=== PATIENT | female | born 1975 | race Two or more races ===

== ENCOUNTER 2018-04-06 14:55 | Emergency (ER) | payer SELFPAY ==
[2018-04-06 16:14] LABS: BASO # 0.1 x10^3/uL (0.0-0.2); BASO % 1 % (0-3); EOS # 0.1 x10^3/uL (0.0-0.7); EOS % 1 % (0-3); HEMATOCRIT 40.4 % (36.0-47.0); HEMOGLOBIN 13.4 g/dL (12.0-15.5); LYMPH # 1.1 x10^3/uL (1.0-4.8); LYMPH % 7 % (24-48); MEAN CORPUSCULAR HEMOGLOBIN 26 pg (25-35); MEAN CORPUSCULAR HGB CONC 33 g/dL (31-37); MEAN CORPUSCULAR VOLUME 79 fL (79-100); MONO # 0.8 x10^3/uL (0.0-1.1); MONO % 5 % (0-9); NEUT # 14.1 x10^3uL (1.8-7.7); NEUT % 87 % (31-73); PLATELET COUNT 231 x10^3/uL (140-400); RED BLOOD COUNT 5.12 x10^6/uL (3.50-5.40); RED CELL DISTRIBUTION WIDTH 14.6 % (11.5-14.5); WHITE BLOOD COUNT 16.2 x10^3/uL (4.0-11.0)
[2018-04-06 16:16] LABS: ADD MAN DIFF? YES
[2018-04-06] MEDS: ONDANSETRON PF 4 MG/2 ML VIAL. IV (16:26)
[2018-04-06] MEDS: fentaNYL PF VIAL 100 MCG/2 ML VIAL IV (16:26)
[2018-04-06] MEDS: IV NORMAL SALINE 1000ML BAG 1,000 ML IV (16:26)
[2018-04-06 16:29] LABS: ANION GAP 12 (6-14); BLOOD UREA NITROGEN 11 mg/dL (7-20); BUN/CREATININE RATIO 16 (6-20); CALCIUM 8.9 mg/dL (8.5-10.1); CARBON DIOXIDE 21 mmol/L (21-32); CHLORIDE 98 mmol/L (98-107); CREATININE 0.7 mg/dL (0.6-1.0); GFR 91.8; GLUCOSE 335 mg/dL (70-99); POTASSIUM 3.7 mmol/L (3.5-5.1); SODIUM 131 mmol/L (136-145)
[2018-04-06 16:31] LABS: NEG OBC SER NEG; POS OBC SER POS; PREG TEST PT QUAL NEGATIVE (NEG)
[2018-04-06 16:35] LABS: ALBUMIN 3.4 g/dL (3.4-5.0); ALBUMIN/GLOBULIN RATIO 0.8 (1.0-1.7); ALK PHOS 194 U/L (46-116); ALT (SGPT) 48 U/L (14-59); AST (SGOT) 22 U/L (15-37); LIPASE 146 U/L (73-393); TOTAL BILIRUBIN 0.4 mg/dL (0.2-1.0); TOTAL PROTEIN 7.9 g/dL (6.4-8.2)
[2018-04-06 16:37] LABS: TROPONINI < 0.017 ng/mL (0.000-0.055)
[2018-04-06 16:45] LABS: BILIRUBIN,URINE NEGATIVE (NEG); CLARITY,URINE CLEAR; COLOR,URINE YELLOW; GLUCOSE,URINE >=1000 mg/dL (NEG); NITRITE,URINE NEGATIVE (NEG); PH,URINE 5.5; PROTEIN,URINE NEGATIVE (NEG-TRACE); UROBILINOGEN,URINE 0.2 mg/dL (0.2 mg/dL)
[2018-04-06 16:55] LABS: BACTERIA,URINE FEW /HPF (0-FEW); RBC,URINE 0 /HPF (0-2); SQUAMOUS EPITHELIAL CELL,UR OCC /LPF; WBC,URINE OCC /HPF (0-4)
[2018-04-06] MEDS ORDERED: CONTRAST GIVEN MC (17:15)
[2018-04-06] MEDS: IOHEXOL 300 MG/ML 100ML VIAL. IV (17:18)
[2018-04-06 17:35] LABS: % BASOS 4 % (0-3); % EOS 3 % (0-5); % LYMPHS 6 % (24-48); % MONOS 1 % (0-10); % SEGS 86 % (35-66); OVALOCYTES OCC; PLT ESTIMATE ADEQUATE (ADEQUATE); POLYCHROMASIA SLIGHT; SCHISTOCYTES OCC
[2018-04-06 18:38] LABS: POC GLUCOSE 249 mg/dL (70-99)
== END 2018-04-06 19:01 | disposition home or self-care (01) ==
LOC: ER 14:55
DX: K52.9 Noninfective gastroenteritis and colitis, unspecified (principal); E11.65 Type 2 diabetes mellitus with hyperglycemia; Z90.49 Acquired absence of other specified parts of digestive tract
CPT/HCPCS: 36415; 74177; 80053; 81001; 82962; 83690; 84484; 84703; 85007; 85025; 93005; 96361; 96374; 96375; 99285-25; J2405; J3010; J7030; Q9967

== ENCOUNTER 2018-12-28 01:10 | Emergency (ER) | payer SELFPAY ==
[~2018-12-28] VITALS: Ht 157.5 cm; Wt 59.0 kg
[~2018-12-28 01:10] MED LIST: CIPR500T94 PO; HYDR-3164 PO; METF500T16 PO; NITR100C62 PO
[2018-12-28 01:53] LABS: BILIRUBIN,URINE NEGATIVE (NEG); CLARITY,URINE CLEAR; COLOR,URINE YELLOW; NITRITE,URINE NEGATIVE (NEG); PROTEIN,URINE NEGATIVE (NEG-TRACE); UROBILINOGEN,URINE 0.2 mg/dL (0.2 mg/dL)
--- NOTE | 2018-12-28 01:58 | PHYS DOC ---
Past Medical History Past Medical History: No Pertinent History, STD Past Surgical History: Appendectomy, Cholecystectomy Alcohol Use: None Drug Use: None Adult General Chief Complaint Chief Complaint: ABDOMINAL PAIN HPI HPI Patient is a 43 year old female who presents with abdominal pain that started suddenly around 21:30 this evening. The pain is in her RUQ and radiates around her torso and down towards her groin. Associated symptoms at initial onset include chest pain and shortness of breath which lasted for less then an hour and have completely resolve without recurrence. She denies fever, chills, nausea , vomiting, melena, hematochezia, dysuria, hematuria. She ate normally yesterday and had normal bowel movement. Her LMP was in October but she reports intermittent vaginal bleeding since. The frequency varies and can occur every few days or subside for a week or two at a time. She has not bled since 12/25. Bleeding associated with what she says feels like menstrual cramps. She underwent cholecystectomy in 2015 with resolution of the symptoms. Review of Systems Review of Systems Constitutional: Denies fever or chills [] Eyes: Denies change in visual acuity, redness, or eye pain [] HENT: Denies nasal congestion or sore throat [] Respiratory: Denies cough or shortness of breath [] Cardiovascular: No additional information not addressed in HPI [] GI: Denies abdominal pain, nausea, vomiting, bloody stools or diarrhea [] : Denies dysuria or hematuria [] Musculoskeletal: Denies back pain or joint pain [] Integument: Denies rash or skin lesions [] Neurologic: Denies headache, focal weakness or sensory changes [] Endocrine: Denies polyuria or polydipsia [] All other systems were reviewed and found to be within normal limits, except as documented in this note. Current Medications Current Medications Current Medications Medications (Trade) Dose Ordered Sig/Yeni Start Time Stop Time Status Last Admin Dose Admin Azithromycin (Zithromax) 1,000 mg 1X ONCE 12/28/18 03:00 12/28/18 03:02 DC 12/28/18 03:14 1,000 MG Ceftriaxone Sodium (Rocephin Im) 250 mg 1X ONCE 12/28/18 03:00 12/28/18 03:02 DC 12/28/18 03:14 250 MG Ketorolac Tromethamine (Toradol 15mg Vial) 15 mg 1X ONCE 2/7/19 02:00 12/28/18 02:01 DC 12/28/18 02:12 15 MG Metoclopramide HCl (Reglan Vial) 10 mg 1X ONCE 12/28/18 02:00 12/28/18 02:01 DC 12/28/18 02:12 10 MG Sodium Chloride 1,000 ml @ 1,000 mls/hr 1X ONCE 12/28/18 02:00 12/28/18 02:59 DC 12/28/18 02:13 1,000 MLS/HR Allergies Allergies Allergies Coded Allergies Type Severity Reaction Last Updated Verified No Known Drug Allergies 02/18/16 No Physical Exam Physical Exam Constitutional: Well developed, well nourished, no acute distress, non-toxic appearance. [] HENT: Normocephalic, atraumatic, bilateral external ears normal, oropharynx moist, no oral exudates, nose normal. [] Eyes: PERRLA, EOMI, conjunctiva normal, no discharge. [] Neck: Normal range of motion, no tenderness, supple, no stridor. [] Cardiovascular:Heart rate regular rhythm, no murmur [] Lungs & Thorax: Bilateral breath sounds clear to auscultation [] Abdomen: Bowel sounds normal, soft, no tenderness, no masses, no pulsatile masses. [] Skin: Warm, dry, no erythema, no rash. [] Back: No tenderness, no CVA tenderness. [] Extremities: No tenderness, no cyanosis, no clubbing, ROM intact, no edema. [] Neurologic: Alert and oriented X 3, normal motor function, normal sensory function, no focal deficits noted. [] Psychologic: Affect normal, judgement normal, mood normal. [] Current Patient Data Vital Signs Vital Signs Date Time Temp Pulse Resp B/P (MAP) Pulse Ox O2 Delivery O2 Flow Rate FiO2 12/28/18 02:51 70 106/63 (77) 96 12/28/18 01:15 98.9 18 Room Air 98.9 Lab Values Laboratory Tests Test 12/28/18 01:45 12/28/18 01:46 12/28/18 02:00 Urine Collection Type Unknown Urine Color Yellow Urine Clarity Clear Urine pH 7.0 Urine Specific Tropic >=1.030 Urine Protein Negative mg/dL (NEG-TRACE) Urine Glucose (UA) >=1000 mg/dL (NEG) Urine Ketones (Stick) Negative mg/dL (NEG) Urine Blood Negative (NEG) Urine Nitrite Negative (NEG) Urine Bilirubin Negative (NEG) Urine Urobilinogen Dipstick 0.2 mg/dL (0.2 mg/dL) Urine Leukocyte Esterase Trace (NEG) Urine RBC 0 /HPF (0-2) Urine WBC 11-20 /HPF (0-4) Urine Squamous Epithelial Cells Few /LPF Urine Bacteria Few /HPF (0-FEW) Urine Mucus Slight /LPF Urine Trichomonas Present POC Urine HCG, Qualitative Hcg negative (Negative) White Blood Count 10.5 x10^3/uL (4.0-11.0) Red Blood Count 4.46 x10^6/uL (3.50-5.40) Hemoglobin 12.4 g/dL (12.0-15.5) Hematocrit 37.6 % (36.0-47.0) Mean Corpuscular Volume 84 fL (79-100) Mean Corpuscular Hemoglobin 28 pg (25-35) Mean Corpuscular Hemoglobin Concent 33 g/dL (31-37) Red Cell Distribution Width 12.4 % (11.5-14.5) Platelet Count 285 x10^3/uL (140-400) Neutrophils (%) (Auto) 66 % (31-73) Lymphocytes (%) (Auto) 26 % (24-48) Monocytes (%) (Auto) 6 % (0-9) Eosinophils (%) (Auto) 1 % (0-3) Basophils (%) (Auto) 1 % (0-3) Neutrophils # (Auto) 6.9 x10^3uL (1.8-7.7) Lymphocytes # (Auto) 2.7 x10^3/uL (1.0-4.8) Monocytes # (Auto) 0.7 x10^3/uL (0.0-1.1) Eosinophils # (Auto) 0.1 x10^3/uL (0.0-0.7) Basophils # (Auto) 0.1 x10^3/uL (0.0-0.2) Sodium Level 135 mmol/L (136-145) L Potassium Level 3.8 mmol/L (3.5-5.1) Chloride Level 98 mmol/L (98-107) Carbon Dioxide Level 24 mmol/L (21-32) Anion Gap 13 (6-14) Blood Urea Nitrogen 11 mg/dL (7-20) Creatinine 0.7 mg/dL (0.6-1.0) Estimated GFR (Cockcroft-Gault) 91.3 BUN/Creatinine Ratio 16 (6-20) Glucose Level 409 mg/dL (70-99) H Calcium Level 8.8 mg/dL (8.5-10.1) Magnesium Level 1.8 mg/dL (1.8-2.4) Total Bilirubin 0.3 mg/dL (0.2-1.0) Aspartate Amino Transferase (AST) 25 U/L (15-37) Alanine Aminotransferase (ALT) 27 U/L (14-59) Alkaline Phosphatase 126 U/L (46-116) H Total Protein 7.7 g/dL (6.4-8.2) Albumin 3.0 g/dL (3.4-5.0) L Albumin/Globulin Ratio 0.6 (1.0-1.7) L Lipase 290 U/L (73-393) Laboratory Tests 12/28/18 02:00 Laboratory Tests 12/28/18 02:00 EKG EKG [] Radiology/Procedures Radiology/Procedures PROCEDURE: CT ABDOMEN PELVIS WO CONTRAST EXAM: CT ABDOMEN/PELVIS WITHOUT CONTRAST. HISTORY: Right flank pain. TECHNIQUE: Computed tomography of the abdomen and pelvis was performed without intravenous contrast. COMPARISON: 04/06/2018. FINDINGS: Lung windows through the visualized portions of the bases reveal mild atelectasis and a few calcified granulomas. Bone windows reveal no suspicious lesions. 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 The gallbladder is surgically absent. The liver, spleen, pancreas, and adrenal glands are unremarkable without contrast. There are no pathologically enlarged lymph nodes. There are no renal or ureteral calculi. There is no hydronephrosis. The kidneys are unremarkable without contrast. There is no evidence of appendicitis. There is no small bowel obstruction. A small calcification in the right adnexa is stable. IMPRESSION: 1. No renal or ureteral calculi. No cause for pain is identified. 2. Bilateral nondisplaced L5 pars interarticularis defects. *One or more of the following individualized dose reduction techniques were utilized for this examination: 1. Automated exposure control. 2. Adjustment of the mA and/or kV according to patient size. 3. Use of iterative reconstruction technique. Electronically signed by: Eli Mary MD (12/28/2018 2:32 AM) [facility] Course & Med Decision Making Course & Med Decision Making Pertinent Labs and Imaging studies reviewed. (See chart for details) Patient presented with acute onset abdominal pain and right CVA tenderness. UA revealing of infection trichomonas. Work up concerning for pyelonephritis. After further discussion patient reports recent vaginal discharge. Also history of Chlamydia. Urine chlamydia and gonorrhea cultures pending. Empiric antibiotics provided. Dragon Disclaimer Dragon Disclaimer This electronic medical record was generated, in whole or in part, using a voice recognition dictation system. Departure Departure Impression: Primary Impression: Pyelonephritis Additional Impressions: Trichimoniasis Hyperglycemia Concern about sexually transmitted disease in female without diagnosis Disposition: 01 HOME, SELF-CARE Condition: STABLE Referrals: NO PCP (PCP) Patient Instructions: Hyperglycemia, [id number], Pyelonephritis, Adult, Easy- to-Read, Sexually Transmitted Disease, [id number], Trichomoniasis Scripts Metronidazole (FLAGYL) 500 Mg Tablet 500 MG PO BID for Vaginosis for 7 Days, #14 TAB Prov: MICHELLE BARR DO 12/28/18 Cephalexin (KEFLEX) 500 Mg Capsule 500 MG PO TID for 7 Days, #21 CAP Prov: MICHELLE BARR DO 12/28/18 Problem Qualifiers MICHELLE BARR DO Dec 28, 2018 01:58
[2018-12-28 02:06] LABS: BASO # 0.1 x10^3/uL (0.0-0.2); BASO % 1 % (0-3); EOS # 0.1 x10^3/uL (0.0-0.7); EOS % 1 % (0-3); HEMATOCRIT 37.6 % (36.0-47.0); HEMOGLOBIN 12.4 g/dL (12.0-15.5); LYMPH # 2.7 x10^3/uL (1.0-4.8); LYMPH % 26 % (24-48); MEAN CORPUSCULAR HEMOGLOBIN 28 pg (25-35); MEAN CORPUSCULAR HGB CONC 33 g/dL (31-37); MEAN CORPUSCULAR VOLUME 84 fL (79-100); MONO # 0.7 x10^3/uL (0.0-1.1); MONO % 6 % (0-9); NEUT # 6.9 x10^3uL (1.8-7.7); NEUT % 66 % (31-73); PLATELET COUNT 285 x10^3/uL (140-400); RED BLOOD COUNT 4.46 x10^6/uL (3.50-5.40); RED CELL DISTRIBUTION WIDTH 12.4 % (11.5-14.5); WHITE BLOOD COUNT 10.5 x10^3/uL (4.0-11.0)
[2018-12-28 02:07] LABS: BACTERIA,URINE FEW /HPF (0-FEW); RBC,URINE 0 /HPF (0-2); SQUAMOUS EPITHELIAL CELL,UR FEW /LPF; TRICHOMONAS,URINE PRESENT
[2018-12-28] MEDS: KETOROLAC 15 MG/ML VIAL. IV ONE (02:12)
[2018-12-28] MEDS: METOCLOPRAMIDE HCL 10 MG/2 ML VIAL. IV ONE (02:12)
[2018-12-28] MEDS: IV NORMAL SALINE 1000ML BAG 1,000 ML IV ONE (02:13)
[2018-12-28 02:17] LABS: CALCIUM 8.8 mg/dL (8.5-10.1); CREATININE 0.7 mg/dL (0.6-1.0); GFR 91.3; POTASSIUM 3.8 mmol/L (3.5-5.1)
[2018-12-28 02:22] LABS: ALBUMIN/GLOBULIN RATIO 0.6 (1.0-1.7); MAGNESIUM 1.8 mg/dL (1.8-2.4); TOTAL BILIRUBIN 0.3 mg/dL (0.2-1.0); TOTAL PROTEIN 7.7 g/dL (6.4-8.2)
--- NOTE | 2018-12-28 02:36 | RAD ---
EXAM: CT ABDOMEN/PELVIS WITHOUT CONTRAST. HISTORY: Right flank pain. TECHNIQUE: Computed tomography of the abdomen and pelvis was performed without intravenous contrast. COMPARISON: 04/06/2018. FINDINGS: Lung windows through the visualized portions of the bases reveal mild atelectasis and a few calcified granulomas. Bone windows reveal no suspicious lesions. 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 The gallbladder is surgically absent. The liver, spleen, pancreas, and adrenal glands are unremarkable without contrast. There are no pathologically enlarged lymph nodes. There are no renal or ureteral calculi. There is no hydronephrosis. The kidneys are unremarkable without contrast. There is no evidence of appendicitis. There is no small bowel obstruction. A small calcification in the right adnexa is stable. IMPRESSION: 1. No renal or ureteral calculi. No cause for pain is identified. 2. Bilateral nondisplaced L5 pars interarticularis defects. *One or more of the following individualized dose reduction techniques were utilized for this examination: 1. Automated exposure control. 2. Adjustment of the mA and/or kV according to patient size. 3. Use of iterative reconstruction technique. Electronically signed by: Eli Mary MD (12/28/2018 2:32 AM) [facility]
[2018-12-28] MEDS ORDERED: CEPH-264 PO (02:44)
[2018-12-28] MEDS ORDERED: METR500T PO (02:45)
[2018-12-28 02:51] VITALS: BP 106/63
[2018-12-28] MEDS: AZITHROMYCIN 250 MG TABLET. PO ONE (03:14)
[2018-12-28] MEDS: cefTRIAXone IM 250 MG VIAL IM ONE (03:14)
== END 2018-12-28 03:24 | disposition home or self-care (01) ==
LOC: ER 01:10
DX: N12 Tubulo-interstitial nephritis, not specified as acute or chronic (principal); A59.8 Trichomoniasis of other sites; R73.9 Hyperglycemia, unspecified; R07.89 Other chest pain; R06.02 Shortness of breath; N93.9 Abnormal uterine and vaginal bleeding, unspecified; J98.11 Atelectasis; R10.11 Right upper quadrant pain; Z20.2 Contact with and (suspected) exposure to infections with a predominantly sexual mode of transmission; Z90.89 Acquired absence of other organs; Z90.49 Acquired absence of other specified parts of digestive tract
CPT/HCPCS: 36415; 74176; 80053; 81001; 81025; 83690; 83735; 85025; 87086; 87491; 87591; 96372; 96374; 96375; 99284; J0696; J1885; J2765; J7030; Q0144